=== PATIENT | female | born 1965 | race African-American/Black ===

== ENCOUNTER 2016-08-27 21:08 | Emergency (ER) | payer MEDICARE, MEDICAID ==
[2016-08-28] MEDS ORDERED: TRAMADOL 50 MG TAB ONE (01:08)
== END 2016-08-28 01:25 | disposition home or self-care (01) ==
LOC: ER 21:08
DX: S39.012A Strain of muscle, fascia and tendon of lower back, initial encounter (principal); S00.93XA Contusion of unspecified part of head, initial encounter; S70.01XA Contusion of right hip, initial encounter; S80.01XA Contusion of right knee, initial encounter; W01.0XXA Fall on same level from slipping, tripping and stumbling without subsequent striking against object, initial encounter; Y92.512 Supermarket, store or market as the place of occurrence of the external cause
CPT/HCPCS: 70450; 72100